=== PATIENT | female | born 1985 | race American Indian/Alaskan Native ===

== ENCOUNTER 2017-09-07 16:56 | Emergency (ER) | payer SELFPAY ==
[2017-09-07 17:28] VITALS: BP 115/73
== END 2017-09-08 04:56 | disposition left against medical advice (07) ==
LOC: ED 16:56
DX: J00 Acute nasopharyngitis [common cold] (principal); Z53.21 Procedure and treatment not carried out due to patient leaving prior to being seen by health care provider